=== PATIENT | male | born 1985 ===

== ENCOUNTER → 2021-05-31 16:17 | Outpatient (BNVA) | payer OTHER, SELFPAY | PROVIDERS: Visit Provider Internal Medicine | DX: S61.311A Laceration without foreign body of left index finger with damage to nail, initial encounter (principal); W31.89XA Contact with other specified machinery, initial encounter; Z23 Encounter for immunization | CPT/HCPCS: 12001; 90714; 99203 ==

== ENCOUNTER → 2021-06-03 09:21 | Outpatient (BNVA) | payer OTHER, SELFPAY | PROVIDERS: Visit Provider Internal Medicine | DX: S61.311A Laceration without foreign body of left index finger with damage to nail, initial encounter (principal); W23.0XXA Caught, crushed, jammed, or pinched between moving objects, initial encounter | CPT/HCPCS: 99213 ==

== ENCOUNTER → 2021-08-30 11:11 | Outpatient (BNVA) | payer OTHER, SELFPAY | PROVIDERS: Visit Provider Physician Assistant | DX: S61.211A Laceration without foreign body of left index finger without damage to nail, initial encounter (principal); W31.89XA Contact with other specified machinery, initial encounter | CPT/HCPCS: 12002; 99203 ==

== ENCOUNTER → 2021-09-03 10:52 | Outpatient (BNVA) | payer OTHER, SELFPAY | PROVIDERS: Visit Provider Physician Assistant Medical | DX: S61.211A Laceration without foreign body of left index finger without damage to nail, initial encounter (principal); W26.9XXA Contact with unspecified sharp object(s), initial encounter | CPT/HCPCS: 99213 ==

== ENCOUNTER → 2021-09-06 12:48 | Outpatient (BNVA) | payer OTHER, SELFPAY | PROVIDERS: Visit Provider Physician Assistant | DX: S61.211A Laceration without foreign body of left index finger without damage to nail, initial encounter (principal); L03.012 Cellulitis of left finger; W31.89XA Contact with other specified machinery, initial encounter | CPT/HCPCS: 87071; 87205; 99212; 99214 ==

== ENCOUNTER → 2021-09-09 10:59 | Outpatient (BNVA) | payer OTHER, SELFPAY | PROVIDERS: Visit Provider Physician Assistant Medical | DX: S61.211A Laceration without foreign body of left index finger without damage to nail, initial encounter (principal); L03.012 Cellulitis of left finger; W31.89XA Contact with other specified machinery, initial encounter | CPT/HCPCS: 99213 ==

== ENCOUNTER → 2021-09-13 13:03 | Outpatient (BNVA) | payer OTHER, SELFPAY | PROVIDERS: Visit Provider Physician Assistant | DX: S61.211A Laceration without foreign body of left index finger without damage to nail, initial encounter (principal); L03.012 Cellulitis of left finger; W31.89XA Contact with other specified machinery, initial encounter | CPT/HCPCS: 99213 ==

== ENCOUNTER → 2021-09-26 13:41 | Outpatient (BNVA) | payer OTHER, SELFPAY | PROVIDERS: Visit Provider Internal Medicine | DX: L03.012 Cellulitis of left finger (principal) | CPT/HCPCS: 99214 ==

== ENCOUNTER → 2021-09-30 09:32 | Outpatient (BNVA) | payer OTHER, SELFPAY | PROVIDERS: Visit Provider Physician Assistant Medical | DX: L03.012 Cellulitis of left finger (principal) | CPT/HCPCS: 99213 ==

== ENCOUNTER 2023-03-27 08:33 | Emergency (ER) | payer MEDICAID, SELFPAY ==
--- NOTE | ~2023-03-27 | XR_ITS ---
EXAMINATION: XR FOOT, LEFT CLINICAL INFORMATION: 2 weeks ago punctured with a metal COMPARISON: None available. TECHNIQUE: AP, lateral, and oblique views of the left foot. FINDINGS: There is no radiopaque metallic foreign body seen in the online the plantar surface. No focal soft tissue swelling. No bony abnormality. There is a small retrocalcaneal enthesophyte. Ankle mortise and subtalar joints are normal. XR/XR foot LT 2V IMPRESSION: 1. No radiopaque metallic foreign body or soft tissue swelling seen along the plantar surface of the foot. 2. Small retrocalcaneal enthesophyte.
[2023-03-27 09:06] VITALS: BP 134/86; PULSE 74; RESP 16; TEMP 36.2; O2SAT 97; BMI 49.4
--- NOTE | 2023-03-27 10:06 | ED.LOWEXIN ---
HPI - Extremity Injury (Lower) General Chief Complaint: Extremity Injury, Lower Stated Complaint: L Foot Injury 2-3 Wks Ago Time Seen by Provider: 03/27/23 09:13 Source: patient, RN notes reviewed and old records reviewed Mode of arrival: ambulatory History of Present Illness HPI Narrative: 37-year-old male with no significant past medical history presenting to the ED complaining of painful lump to bottom of left foot s/p jumping on his child's bed and spring puncturing foot 2-3 weeks ago. Patient concern for retained foreign body/spring. Denies fever/chills, drainage from area, numbness/tingling. Tetanus up-to-date Related Data Previous Rx's Medication Instructions Recorded mupirocin 2 % topical ointment 1 appl topical BID 7 days #15 grams 03/27/23 Allergies Allergy/AdvReac Type Severity Reaction Status Date / Time Penicillins [PENICILLINS] Allergy Unknown UNKNOWN Unverified 11/17/19 15:44 Review of Systems Review of Systems: Constitutional: No Fever, No Chills ENT/Mouth: No Ear Pain, No Nasal Congestion, No sore throat, No Rhinorrhea, No Swallowing Difficulty Cardiovascular: No Chest Pain, No SOB Respiratory: No Cough, No Sputum, No Wheezing Musculoskeletal: No joint pain, No Myalgias Skin: +Skin Lesions, No rash Neuro: No Weakness, No Numbness, No Paresthesias Yes all other systems are reviewed and are negative Constitutional: Constitutional: Reports as per HPI [facility] Past Medical History Attestation statement: The following information was validated with the patient. Source: old records reviewed Social History Social History Advance Directives: No Advance Directives Information Provided: No Physical Exam Vital Signs: Vital Signs: Last Vital Signs Temp 97.1 F 03/27/23 09:06 Pulse 74 03/27/23 09:06 Resp 16 03/27/23 09:06 BP 134/86 03/27/23 09:06 Pulse Ox 97 03/27/23 09:06 O2 Del Method Room Air 03/27/23 09:06 BMI result Body Mass Index 49.4 Const: General: cooperative, healthy appearing and no acute distress Orientation/consciousness: patient oriented x3 Limitations: no limitations HEENT: Head: Yes normal to inspection and Yes atraumatic Ears: hearing grossly normal bilaterally General nose exam: Normal external nose present Face and sinus: Yes normal facial exam Eyes: General: appearance normal, both eyes and all related structures EOM: EOMs intact bilaterally Neck: Neck: Yes normal visual inspection and Yes no meningeal signs Resp: Effort & Inspection: normal respiratory effort and no respiratory distress Cardio: Rate: regular rate Skin: Other: + hard callused area noted to plantar aspect of left foot. No surrounding erythema. No fluctuance/induration. Tender to palpation Rashes: no rashes Neuro: General: patient oriented x3, tone normal and no meningeal signs Cranial nerves: Yes CN's II-XII intact bilaterally Gait exam (Neuro): Normal gait present Extrem: General: Yes normal to inspection Course Course Course Narrative: XR foot LT 2V IMPRESSION: 1. No radiopaque metallic foreign body or soft tissue swelling seen along the plantar surface of the foot. 2. Small retrocalcaneal enthesophyte. > case discussed with ED attending Dr. Johansen who also evaluated patient. With 18 gauge needle, superficially dug skin at area > which provided some symptomatic relief for patient. No appreciable foreign body. Results discussed with patient including worrisome signs and symptoms and strict return precautions, and when to return to the emergency department. They verbalized understanding and feel safe for discharge at this time. Medical Decision Making Medical Decision Making MDM Narrative: 37-year-old male with no significant past medical history presenting to the ED complaining of painful lump to bottom of left foot s/p jumping on his child's bed and spring puncturing foot 2-3 weeks ago. On exam vital signs stable, NAD, nontoxic appearing physical exam as noted above. Concern for retained foreign body vs callus/corn. No evidence of cellulitis/abscess Plan: X-ray Please refer to course for remaining clinical decision making, interpretation of labs/imaging results, and discussions with consultants and/or family members. Differential Diagnosis Differential Diagnoses: The differential diagnosis associated with the presentation includes As above Independent Interpretation I performed an independent interpretation of an: Plain X-Ray (My interpretation: No appreciable foreign body seen on x-ray) Radiology Impression Discussion of test interpretation with radiology: I have reviewed the radiologist's reading. External Record Review External record reviewed: Inpatient record, Office record, Outpatient record, Prior outpatient labs, Prior outpatient radiology, Primary care record and Outside ED record Tests considered The following testing was considered but not selected: As above Prescription Management I considered prescription management with: Pain Medication and Antibiotic Discharge Plan Discharge Clinical Impression: [place] of foot Patient Disposition: Home, Self-Care Additional Instructions: Please purchase [id number] corn treatment/patches at [facility] or [facility] Apply topical mupirocin twice daily which is an antibiotic ointment Please follow-up with general surgery and/or Podiatry for further monitoring/evaluation. If symptoms persist or worsen or pain becomes unbearable or area looks infected return to the ED Prescriptions: New mupirocin 2 % ointment 1 appl topical BID 7 Days Qty: 15 0RF Referrals: [facility] [place] Group] Sterling Gaines DPM [Physician] - Stand Alone Forms: Work/School Release
[2023-03-27 10:15] VITALS: RESP 16
== END 2023-03-27 10:16 | disposition home or self-care (01) ==
PROVIDERS: Emergency Provider Emergency Medicine
DX: L84 Corns and callosities (principal)
CPT/HCPCS: 73620; 99283; 99284

== ENCOUNTER 2023-03-29 12:24 | Emergency (ER) | payer MEDICAID, SELFPAY ==
[2023-03-29 12:29] VITALS: BP 146/81; PULSE 84; RESP 20; TEMP 37; O2SAT 96; BMI 46.5
--- NOTE | 2023-03-29 12:31 | ED_ITS ---
HPI - General Adult General Chief complaint: Dental/Oral Stated complaint: Dental pain Source: patient Mode of arrival: ambulatory Limitations: no limitations History of Present Illness HPI narrative: 37 yold yold male present to the ED for right tooth ache pain started today. Patient states no facial swelling, neck swelling, droolling, change in voice, recent trauma, headache, chest pain, or shortness of breath. Related Data Previous Rx's Medication Instructions Recorded mupirocin 2 % topical ointment 1 appl topical BID 7 days #15 grams 03/27/23 clindamycin HCl 300 mg capsule 300 mg PO QID 10 days #40 caps 03/29/23 naproxen 500 mg tablet 500 mg PO BID PRN pain 7 days #14 03/29/23 tabs Allergies Allergy/AdvReac Type Severity Reaction Status Date / Time Penicillins [PENICILLINS] Allergy Unknown UNKNOWN Unverified 03/29/23 12:31 Review of Systems 2 Review of Systems: right upper molar pain. Yes all other systems are reviewed and are negative [facility] Social History Social History Alcohol intake: current Alcohol intake frequency: holidays/special occasions only Substance Use Type: Marijuana Advance Directives: No Advance Directives Information Provided: No Physical Exam ED Vital Signs: Vital Signs - 24 hr 03/29/23 12:29 Temperature 98.6 F Pulse Rate 84 Respiratory Rate 20 Blood Pressure 146/81 H Pulse Oximetry 96 Oxygen Delivery Method Room Air BMI result Body Mass Index 46.5 Const General: cooperative, healthy appearing, comfortable, no acute distress, well developed, alert, awake and Physically active Orientation/consciousness: oriented to person, oriented to place, oriented to time and patient oriented x3 HENMT Head: Yes normal to inspection, Yes No palpable skull fracture present, Yes normocephalic and Yes atraumatic Teeth image: 2 1. tender on palpation. negative for yellow collection, gum swelling, redness, drooling, trismus, haorness, or oral abscess. Eyes General: appearance normal, both eyes and all related structures Neck Neck: Yes normal visual inspection, Yes full ROM, Yes no lymphadenopathy, Yes no meningeal signs, Yes trachea midline, Yes supple, No anterior neck swelling and No tender Chest Chest palpation & inspection: normal inspection of the chest and normal palpation of entire chest wall Resp Effort & Inspection: normal respiratory effort and able to speak in complete sentences Auscultation: clear to auscultation bilaterally Cardio Jugular venous distension: no JVD Heart sounds: S1 normal heart sound present and S2 normal heart sound present GI Inspection: Yes normal to inspection Palpation (GI): Soft to palpation, not firm, nontender, no guarding and not rigid General: No CVA tenderness and Yes no CVA tenderness Back/Spine/Pelvis Back: no CVA tenderness, No CVA tenderness and No back tenderness Skin General skin exam: no rashes or lesions noted, elasticity normal and turgor normal Neuro General: oriented to person, oriented to place, oriented to time, patient oriented x3, gait normal, tone normal, moves all extremities, Normal light touch and pain sensation, no meningeal signs, no focal motor deficits, CN's II-XI intact bilaterally and normal sensation to monofilament Extrem General: Yes normal to inspection, Yes full ROM and Yes capillary refill normal Psych Appearance: grossly normal, well kempt and not disheveled Medical Decision Making Medical Decision Making MDM Narrative: 37 yold male presents to the ED for upper right molar pain that began today. patient states history of tooth ache. patient states no trauma, facial swelling, neck swelling, drooling, shortness of breath, or chest pain. discharbge with anitibioics. Not suspecting Harris's angina, retropharyngeal abscess, dental abscess, trismus, cellulitis, or fracture Differential Diagnosis Differential Diagnoses: The differential diagnosis associated with the presentation includes (Toothache, dental abscess,) External Record Review External record reviewed: Other (Prior visits) Prescription Management I considered prescription management with: Pain Medication and Antibiotic Discharge Plan Discharge Clinical Impression: Toothache Patient Disposition: Home, Self-Care Instructions: Toothache (ED) Additional Instructions: Return to the ED immediately for any facial swelling, neck swelling, drooling, worsening pain, inability tolerate solid food/liquid, chest pain, shortness of breath, weakness, dizziness, headache, or any other concerning symptoms. Please follow-up with the dentist Prescriptions: New naproxen 500 mg tablet 500 mg PO BID PRN (Reason: pain) 7 Days Qty: 14 0RF clindamycin HCl 300 mg capsule 300 mg PO QID 10 Days Qty: 40 0RF No Action mupirocin 2 % ointment 1 appl topical BID 7 Days Qty: 15 0RF Stand Alone Forms: Work/School Release Interventions: ED Discharge Assessment Last Done: 03/29/23 12:42 Discharge Date/Time: 03/29/23 12:44 Print Language: Mexican
== END 2023-03-29 12:44 | disposition home or self-care (01) ==
PROVIDERS: Emergency Provider Emergency Medicine
DX: K08.89 Other specified disorders of teeth and supporting structures (principal)
CPT/HCPCS: 99282; 99283

== ENCOUNTER 2023-06-19 14:52 | Outpatient (AMB) | payer MEDICAID, SELFPAY ==
--- NOTE | 2023-06-19 14:53 | A.OFFVIS_ITS ---
Intake Visit Reasons: vasectomy consult Intake Note: New Patient presents for initial visit for Vasectomy Consult Urology Medications: none Blood Thinner: none Children# 5 Expected Children#0 Lacing Cutter Required: No Accompanied by: Unknown Allergies Penicillins [PENICILLINS] Allergy (Unknown, Unverified 06/20/23 14:46) UNKNOWN Medication List - Last Reconciled 06/20/23 by JO ANN Huff No Known Home Meds HPI Comments Details: Hitesh is a very pleasant 38-year-old male patient who is accompanied by his significant other at today's office visit. He presents to the office today for - vasectomy evaluation Vasectomy evaluation The patient presents for vasectomy consultation.? He is currently marrie.d He has fathered -?5 children with 2 partners. The youngest child is - 1-year-old and the oldest is 18 years of age. His partner is aware and permissive for a vasectomy as she is present at todays office visit. Current form of control is hormones. Current employment is [employer]. The vasectomy may be complicated due to a history of no complicating issues. Patient education has been provided via [facility] video, via printed information, risks of failure, recovery time, bruising and potential pain syndrome have been stressed Discussion today focused on the presence of vasectomy and the risks, benefits and alternatives that are available. Vasectomy as intended as a permanent form of control. Printed information and literature was provided to the patient. Overall there is a one in 2500 failure rate. This can occur at any time after vasectomy. Risks were discussed highlighting hematoma, spermatocele, epididymal congestion, development of sperm antibodies, and development of chronic pain estimated between 1-5%. The procedure was reviewed in detail. Anatomical diagrams of the male genitalia were used to explain the location of the vas deferens. The vas deferens will be transected, the proximal end will be cauterized, a metal clip would be applied to separate the 2 vas deferens ends. It was explained the procedure will be done in the office and takes approximately 10-15 minutes. Less common problems that arise with vasectomy include hematoma, bleeding, allergic reaction to anesthetic, epididymal infection, epididymal congestion, scrotal discomfort, spermatic leak, spermatic granuloma and the possibility of antisperm antibodies. He understands these risks and wishes to proceed. Consent was signed at the office today. He also understands that it takes 12 weeks for sperm to fully clear the system. He will need to provide a semen sample at 12 weeks and if this is not clear a 2nd sample at 16 weeks. Medical clearance to stop using protection will only be provided if he satisfies published criteria for sperm clearance. [facility] Social History Alcohol intake: current Alcohol intake frequency: holidays/special occasions only Substance Use Type: Marijuana Review of Systems Const All systems reviewed & are unremarkable except as noted in HPI and below Physical Exam Const General: cooperative, comfortable, no acute distress, well developed, alert and awake Orientation/consciousness: patient oriented x3 HEENT Head: Yes normal to inspection, Yes normocephalic and Yes atraumatic Ears: hearing grossly normal bilaterally Eyes General: appearance normal, both eyes and all related structures Neck Neck: Yes normal visual inspection and Yes trachea midline Chest Chest palpation & inspection: normal inspection of the chest Resp Effort & Inspection: normal respiratory effort and able to speak in complete sentences Cardio Rate: regular rate GI Inspection: Yes normal to inspection General: Yes no CVA tenderness Male General Exam: Yes normal external exam Penis: normal penis Meatus: meatus normal Scrotum: scrotum normal Testes: Testes normal Back/Spine/Pelvis Back: no CVA tenderness Skin General skin exam: no rashes or lesions noted Neuro General: patient oriented x3 Extrem General: Yes normal to inspection Psych Appearance: grossly normal and well kempt Mental Status: mental status grossly normal Speech and movement: Normal speech and movement present and Clear speech present Affect: normal affect Attitude: cooperative Thought process: Normal thought process present Thought content: Normal thought content present Insight: Fair insight present (Psych) Judgement: Fair judgement present (Psych) Results AMB Urinalysis, Automated UA Leukoctes 0 Ashely/uL Last Edit by Juvencio Campoverde on 06/19/23 15:07 UA Nitrite Negative Last Edit by Juvencio Campoverde on 06/19/23 15:07 UA Urobilinogen 0.2 mg/dL Last Edit by Juvencio Campoverde on 06/19/23 15:07 UA Protein 15 mg/dL Last Edit by Juvencio Campoverde on 06/19/23 15:07 UA pH 6.0 Last Edit by Juvencio Campoverde on 06/19/23 15:07 UA Blood 0 Gary/uL Last Edit by Juvencio Campoverde on 06/19/23 15:07 UA Specific [place] 1.015 Last Edit by Juvencio Campoverde on 06/19/23 15:07 UA Ketone Positive Last Edit by Juvencio Campoverde on 06/19/23 15:07 UA Bilirubin 0 mg/dL Last Edit by Juvencio Campoverde on 06/19/23 15:07 UA Glucose 0 mg/dL Last Edit by Juvencio Campoverde on 06/19/23 15:07 Results Reviewed Results Reviewed: Laboratory Last Values Urine pH (Auto) 6.0 06/19/23 15:03 Specific [place] (Auto) 1.015 06/19/23 15:03 Urine Protein (Auto) 15 mg/dL 06/19/23 15:03 Glucose (UA)(Auto) 0 mg/dL 06/19/23 15:03 Urine Ketones (Auto) Positive 06/19/23 15:03 Urine Blood (Auto) 0 Gary/uL 06/19/23 15:03 Urine Nitrite (Auto) Negative 06/19/23 15:03 Urine Bilirubin (Auto) 0 mg/dL 06/19/23 15:03 Urine Urobilinogen (Auto) 0.2 mg/dL 06/19/23 15:03 Leukocyte Esterase (Auto) 0 Ashely/uL 06/19/23 15:03 Assessment & Plan Assessment & Plan (1) Anxiety about health: Code(s): R45.89 - Other symptoms and signs involving emotional state Category: Medical (2) Vasectomy evaluation: Code(s): Z30.09 - Encounter for other general counseling and advice on contraception Category: Medical Plan Discussed at length vasectomy; risks and benefits; as noted above. All questions were answered. Prescriptions provided; discussed and stressed the importance of taking them as prescribed. [place] information/education provided. Will schedule for vasectomy with Dr. Martínez as discussed. Orders: Orders AMB Urinalysis Automated 06/19/23 Z13.9 - Encounter for screening, unspecified Medications: New diazepam Take medication after arrival at office 2 mg PO BID 1 day PRN 2 tabs 0RF anxiety R45.89 - Other symptoms and signs involving emotional state acetaminophen-codeine 300-30 mg 1 tab PO Q8H 3 days 9 tabs 0RF R45.89 - Other symptoms and signs involving emotional state Discontinued mupirocin 2% Discontinued Reason: Patient no longer taking 1 appl topical BID 7 days 15 grams 0RF clindamycin HCl Discontinued Reason: Patient no longer taking 300 mg PO QID 10 days 40 caps 0RF naproxen Discontinued Reason: Patient no longer taking 500 mg PO BID 7 days PRN 14 tabs 0RF pain Patient Instructions: The patient had an opportunity to ask questions regarding the treatment plan. All questions were answered. Physical exam, labs, and imaging were discussed and reviewed in detail. As well as risks, benefits, and discussion of treatment c hoices. No major barriers to understanding were identified. The patient expressed understanding and agreement with the above treatment plan. The patient was made aware they should contact our office by phone for worsening of their current condition, the appearance of new symptoms, or with any questions or concerns. Compliance is encouraged with any medications and follow up testing that is ordered. It is a privilege to be allowed the opportunity to participate in? your urological care.? Again, if you have any questions or concerns If you have any questions or concerns please do not hesitate to contact me. The office is [phone]. This note is constructed using voice recognition software. While every effort has been made to ensure accuracy fitness and wellness director errors may have been included. Yours sincerely, JO ANN Huff
== END 2023-06-19 15:35 | disposition home or self-care (01) ==
PROVIDERS: Visit Provider Nurse Practitioner Family
DX: Z13.9 Encounter for screening, unspecified (principal)
CPT/HCPCS: 99204

== ENCOUNTER → 2023-06-19 14:52 | Outpatient (BNVA) | payer MEDICAID, SELFPAY | PROVIDERS: Visit Provider Nurse Practitioner Family | DX: Z30.09 Encounter for other general counseling and advice on contraception (principal); R45.89 Other symptoms and signs involving emotional state | CPT/HCPCS: 81003; 99212 ==

== ENCOUNTER 2023-08-05 14:49 | Outpatient (AMB) | payer MEDICAID, SELFPAY ==
--- NOTE | 2023-08-05 15:46 | A.OFFVIS_ITS ---
Intake Visit Reasons: Vasectomy Intake Note: Patient presents today for a VASECTOMY PROCEDURE: Meds- None Allergies to Antibiotic- Penicillin Blood Thinner- None Ultrasonic Cleaner Required: No Accompanied by: Significant Other Allergies Penicillins [PENICILLINS] Allergy (Unknown, Verified 08/05/23 15:47) UNKNOWN HPI Comments Details: Hitesh is a very pleasant 38-year-old male patient who is accompanied by his significant other at today's office visit. He presents to the office today for - vasectomy procedure Vasectomy procedure The patient presents for vasectomy procedure.? He is currently marrie.d He has fathered -?5 children with 2 partners. The youngest child is - 1-year-old and the oldest is 18 years of age. His partner is aware and permissive for a vasectomy as she is present at the [facility] office visit. Current form of control is hormones. Current employment is [employer]. FORMERLY [facility] Surgical History (Updated 08/05/23 @ 15:48 by CLARK Spangler) History of vasectomy Social History Alcohol intake: current Alcohol intake frequency: holidays/special occasions only Substance Use Type: Marijuana Office Procedures Vasectomy Details: Preoperative diagnosis: Anxiety regarding Postoperative diagnosis: Anxiety regarding unplanned Procedure: Bilateral vasectomy Informed consent had been completed. Preoperative and postoperative instructions were provided to the patient. The patient has transportation to home identified at the completion of the procedure. Anti-anxiolytic prescription medication had been taken after consent verification and all questions answered. Tylenol with Codeine pain medication was also provided. The penis was elevated using a rubber band that was attached to the patient's shirt. Both vasa were palpated through the skin using a 3 finger technique and the penoscrotal junction was prepped with Betadine. After Betadine application the left vas was elevated using a 3 finger grasping technique. 1% lidocaine was used to create a subdermal bubble. Further anesthetic was then advanced using the 25-gauge needle along the vasa in a proximal fashion. Approximately 2 minutes were allowed to for local anesthetic uptake. Using the sharp spreading instrument the scrotal skin was spread longitudinally in line with the vasa until the subdermal layer had been divided. The vasa was then elevated from the scrotum using a ring clamp. Care was taken to elevate the superior portion of the vasa by rotating the ring clamp in a caudad direction. The battery powered cautery was used to divide the vasal sheath in a longitudinal direction on the exposed vasa and to strip the vasal sheath from the vasa. A 2nd narrower ring clamp was placed on the exposed vas and used to lift the vas from the vasal sheath. so it grasped the elevated vas. The cautery was used to divide vasal attachments and allow full exposure of a small loop of vasa. The sharp spreading instrument was then used to create a tunnel under the vasa and spread to allow the blood vessels of the vasa to retract from the vasa. A mosquito clamp was placed on the proximal portion of the vas. The battery- powered cautery was used to make a partial division in the proximal vas and then inserted in order to cauterize the proximal end of the vas. This was then cut and allowed to retract into the vasal sheath. The mosquito was then used to twist the vasa 180 degrees creating a fascial interposition. Using a 4-0 chromic suture the fascial interposition was sutured closed. The distal portion of the vas was then cut in order to obtain a segment of vasa. The vasa were allowed to retract back into the scrotum. A small snap was then used to approximate the skin edges and allow hemostasis without placement of a suture. A similar procedure was repeated on the right side. He tolerated the procedure well. Triple antibiotic was applied. A gauze was applied. An ice pack was applied to assist with minimizing swelling. Postoperative instructions were confirmed. He understands the need to continue to use control methods. A semen sample should be brought for inspection under the microscope in 10-12 weeks. CPT 05895 Vasectomy performed by: Ari Martínez Informed consent given: Yes Informed consent signed: Yes Time out checklist: patient, procedure, site marked/identified, positioning of patient, supplies available, allergies confirmed and team agrees on procedure Time out verified: Yes Preoperative sedation: Yes Anesthetic used: other Specimens: vas segments not sent to pathology 18763 - Vasectomy Assessment & Plan Assessment & Plan (1) Anxiety about health: Code(s): R45.89 - Other symptoms and signs involving emotional state Category: Medical Plan Twelve week follow-up Patient Instructions: Imaging studies, laboratory and physical exam results were discussed and reviewed in detail. No major barriers to patient understanding were identified. An opportunity to ask questions regarding the treatment plan was provided. All questions were answered. The patient expressed understanding and agreement with the above treatment plan. The patient is aware they should contact our office by phone for worsening of their current condition or the appearance of new urologic symptoms. Compliance is encouraged with any medications and followup testing that is ordered. It is a privilege to participate in the urologic care of your patient. If you have any questions or concerns regarding treatment for the above conditions, or other urologic issues, please do not hesitate to contact me. The office telephone contact is [phone]. This note is constructed using voice recognition software. While every effort has been made to ensure accuracy director of psychology errors may have been included. Yours sincerely, Dr Ari Martínez MD, [place] [facility] - Urology Providers of Expert, Compassionate Care for the Genitourinary System Coding Level of Care Code Procedure Only Diagnoses Anxiety about health R45.89 CPT Codes Office Procedure - CPT: 15862 - Vasectomy ([id number])
== END 2023-08-05 16:11 | disposition home or self-care (01) ==
PROVIDERS: Visit Provider Urology
DX: Z30.2 Encounter for sterilization (principal); R45.89 Other symptoms and signs involving emotional state
CPT/HCPCS: 55250

== ENCOUNTER → 2023-08-05 14:49 | Outpatient (BNVA) | payer MEDICAID, SELFPAY | PROVIDERS: Visit Provider Urology | DX: Z30.2 Encounter for sterilization (principal); R45.89 Other symptoms and signs involving emotional state | CPT/HCPCS: 55250 ==

== ENCOUNTER 2023-11-03 15:13 | Outpatient (AMB) | payer MEDICAID, SELFPAY ==
--- NOTE | 2023-11-03 15:22 | A.OFFVIS_ITS ---
Intake Visit Reasons: 3m semen analysis Intake Note: Patient is present for 3M SEMEN ANALYSIS Urology Medication:DIAZEPAM, TRAMADOL Antibiotic Allergy:PENICILLIN Blood Thinner:NONE Recycle Driver Required: No Allergies Penicillins [PENICILLINS] Allergy (Unknown, Verified 11/03/23 15:24) UNKNOWN HPI Comments Details: Hitesh is a very pleasant 38-year-old male patient who is accompanied by his significant other at today's office visit. He presents to the office today for - vasectomy followup No sperm seen on high-power field evaluation Vasectomy procedure The patient presents for vasectomy procedure.? He is currently marrie.d He has fathered -?5 children with 2 partners. The youngest child is - 1-year-old and the oldest is 18 years of age. His partner is aware and permissive for a vasectomy as she is present at todays office visit. Current form of control is hormones. Current employment is [employer]. REPLACED BY [facility] Surgical History (Updated 08/05/23 @ 15:48 by CLARK Spangler) History of vasectomy Social History Alcohol intake: current Alcohol intake frequency: holidays/special occasions only Substance Use Type: Marijuana Review of Systems Const Denies chills and Denies fever(s) Card Reports no additional complaints and Denies syncope Resp Denies cough GI Denies abdominal pain and Denies heartburn Reports as per HPI and Denies change in libido Neuro Denies syncope Psych Denies change in libido Endo Denies change in libido Physical Exam Const General: cooperative, healthy appearing, comfortable and no acute distress Orientation/consciousness: patient oriented x3 HEENT Face and sinus: Yes normal facial exam Mouth: moist mucous membranes Neck Neck: Yes normal visual inspection, Yes full ROM and Yes trachea midline Chest Chest palpation & inspection: normal inspection of the chest Resp Effort & Inspection: normal respiratory effort, able to speak in complete sentences and no respiratory distress GI Inspection: Yes normal to inspection Back/Spine/Pelvis Cervical Spine: normal cervical lordosis Thoracic/Lumbar Spine: thoracic and lumbar spine normal to inspection Skin General skin exam: no rashes or lesions noted Neuro General: patient oriented x3, gait normal, tone normal and moves all extremities Extrem General: Yes normal to inspection and Yes capillary refill normal Assessment & Plan Assessment & Plan (1) Anxiety about health: Code(s): R45.89 - Other symptoms and signs involving emotional state Category: Medical Plan P.r.n. follow-up Patient Instructions: Imaging studies, laboratory and physical exam results were discussed and reviewed in detail. No major barriers to patient understanding were identified. An opportunity to ask questions regarding the treatment plan was provided. All questions were answered. The patient expressed understanding and agreement with the above treatment plan. The patient is aware they should contact our office by phone for worsening of their current condition or the appearance of new urologic symptoms. Compliance is encouraged with any medications and followup testing that is ordered. It is a privilege to participate in the urologic care of your patient. If you have any questions or concerns regarding treatment for the above conditions, or other urologic issues, please do not hesitate to contact me. The office telephone contact is [phone]. This note is constructed using voice recognition software. While every effort has been made to ensure accuracy corporate pilot errors may have been included. Yours sincerely, Dr Ari Martínez MD, [place] [facility] - Urology Providers of Expert, Compassionate Care for the Genitourinary System Coding Level of Care Code Est Pt Level 3 (98516) Diagnoses Anxiety about health R45.89
== END 2023-11-03 15:46 | disposition home or self-care (01) ==
PROVIDERS: Visit Provider Urology
DX: R45.89 Other symptoms and signs involving emotional state (principal)
CPT/HCPCS: 99024

== ENCOUNTER → 2023-11-03 15:13 | Outpatient (BNVA) | payer MEDICAID, SELFPAY | PROVIDERS: Visit Provider Urology | DX: Z30.8 Encounter for other contraceptive management (principal); Z98.52 Vasectomy status | CPT/HCPCS: 99212 ==

== ENCOUNTER → 2024-01-22 11:49 | Outpatient (BNVA) | payer OTHER, SELFPAY | PROVIDERS: Visit Provider Physician Assistant Medical | DX: S93.492A Sprain of other ligament of left ankle, initial encounter (principal); V68.4XXA Person boarding or alighting a heavy transport vehicle injured in noncollision transport accident, initial encounter | CPT/HCPCS: 73610; 99203 ==

== ENCOUNTER → 2024-01-26 11:03 | Outpatient (BNVA) | payer OTHER, SELFPAY | PROVIDERS: Visit Provider Physician Assistant Medical | DX: S93.492A Sprain of other ligament of left ankle, initial encounter (principal); V68.4XXA Person boarding or alighting a heavy transport vehicle injured in noncollision transport accident, initial encounter | CPT/HCPCS: 99213 ==

== ENCOUNTER → 2024-02-02 09:43 | Outpatient (BNVA) | payer OTHER, SELFPAY | PROVIDERS: Visit Provider Physician Assistant Medical | DX: S93.492D Sprain of other ligament of left ankle, subsequent encounter (principal); V68 Occupant of heavy transport vehicle injured in noncollision transport accident | CPT/HCPCS: 99213 ==

== ENCOUNTER 2024-04-09 13:22 | Emergency (ER) | payer MEDICAID, SELFPAY ==
--- NOTE | ~2024-04-09 | XR_ITS ---
CLINICAL HISTORY: pain 3 views lumbar spine Comparison: None Findings: Slight convex right curvature. No spondylolisthesis. No acute fractures or dislocation. Small marginal osteophytes. No significant loss of disc height. No significant facet disease. IMPRESSION: No acute findings. This document has been electronically signed by: Sushma Hightower MD on 04/09/2024 15:15:57
--- NOTE | ~2024-04-09 | XR_ITS ---
CLINICAL HISTORY: cough, chest pain 2 view chest x-ray Comparison: CR - CHEST 2 VIEWS - 04/18/18 14:06 EST Findings: The lungs are clear. Heart size is normal. No acute fracture. IMPRESSION: 1. No acute findings. This document has been electronically signed by: Sushma Hightower MD on 04/09/2024 15:19:56
--- NOTE | 2024-04-09 13:27 | ECG_ITS ---
Test Reason : CP Blood Pressure : */* mmHG Vent. Rate : 66 BPM Atrial Rate : 66 BPM P-R Int : 106 ms QRS Dur : 90 ms QT Int : 374 ms P-R-T Axes : -4 55 27 degrees QTcB Int : 392 ms Sinus rhythm with short CA Otherwise normal ECG When compared with ECG of 18-Apr-2018 14:12, No significant change was found Referred By: Michelle Sheets Electronically Signed By: Dion Gonzalez
[2024-04-09 13:37] VITALS: BP 152/96; PULSE 81; RESP 20; TEMP 36.9; O2SAT 97; BMI 42.2
--- NOTE | 2024-04-09 13:37 | ED_ITS ---
HPI - General Adult General Chief complaint: Upper Respiratory Symptoms Stated complaint: chest pain when cough, flu symptoms, back pain Time Seen by Provider: 04/09/24 15:49 Source: patient Mode of arrival: ambulatory Limitations: no limitations History of Present Illness ED Provider: Michelle Sheets PA-C HPI narrative: Patient is a 38 year old assigned male at with a history of anxiety about health presenting to the emergency department today with a cough, dizziness, and right sided back pain. Patient states that over the last 2 days he has felt generally unwell with dizziness, cough, and low back pain. Patient states that his child at home is sick with influenza. Patient denies any lightheadedness, abdominal pain, nausea, vomiting, fever, chills, blurry vision, double vision, loss of vision, chest pain, difficulty breathing, shortness of breath, night sweats, pain with urination, increased urinary frequency, increased urinary urgency, blood in his urine or stool, syncope or a near syncopal episode, recent trauma or falls, bowel incontinence, bladder incontinence, or any other complaints at this time. Onset (ago): day(s) (2) Relieving factors: none Exacerbating factors: none Associated symptoms: cough Treatments prior to arrival: none Related Data Previous Rx's ?Medication ?Instructions ?Recorded diazepam 2 mg tablet 2 mg PO BID PRN anxiety 1 day #2 06/20/23 tabs tramadol 50 mg tablet 50 mg PO Q8H PRN pain #7 tabs 08/04/23 ibuprofen 800 mg tablet 800 mg PO TID #30 tabs 01/22/24 Allergies Allergy/AdvReac Type Severity Reaction Status Date / Time Penicillins [PENICILLINS] Allergy Unknown UNKNOWN Verified 04/09/24 13:40 Review of Systems 2 Constitutional: Constitutional: Reports no additional constitutional complaints, Denies chills, Denies fever(s) and Denies night sweats Eyes: Eyes: Reports no additional eye complaints, Denies blurry vision, Denies change in vision, Denies diplopia, Denies eye discharge, Denies loss of vision and Denies eye pain ENT: Reports dizziness Cardiovascular: Cardiovascular: Reports no additional cardiovascular complaints, Denies chest pain, Denies lightheadedness, Denies Loss of Consciousness and Denies dyspnea Respiratory: Respiratory: Reports no additional respiratory complaints, Reports cough and Denies dyspnea Gastrointestinal: Gastrointestinal: Reports no additional gastrointestinal complaints, Denies abdominal pain, Denies melena, Denies hematochezia, Denies change in bowel habits and Denies change in stool character Genitourinary: Genitourinary: Reports no additional male genitourinary complaints, Denies hematuria, Denies oliguria, Denies difficulty urinating, Denies dysuria, Denies urinary frequency, Denies urinary hesitancy, Denies urinary incontinence and Denies urinary urgency Musculoskeletal: Musculoskeletal: Reports no additional musculoskeletal complaints, Reports back pain, Denies numbness and Denies tingling Neurologic: Reports dizziness, Denies loss of vision, Denies numbness and Denies tingling Psychiatric: Psychiatric: Reports no additional psychiatric complaints Endocrine: Endocrine: Reports no additional endocrine complaints Hematologic/Lymphatic: Hematologic/Lymphatic: Reports no additional hematologic/lymphatic complaints Allergic/Immunologic: Allergic/Immunologic: Reports no additional allergic/immunologic complaints PMFSH Past Medical History Attestation statement: The following information was validated with the patient. Source: old records reviewed and nursing notes reviewed Surgical History History of vasectomy Social History Social History Alcohol intake: current Alcohol intake frequency: holidays/special occasions only Substance Use Type: Marijuana Advance Directives: No Advance Directives Information Provided: No Physical Exam ED Vital Signs: Vital Signs - 24 hr 04/09/24 13:37 Temperature 98.5 F Pulse Rate 81 Respiratory Rate 20 Blood Pressure 152/96 H Pulse Oximetry 97 Oxygen Delivery Method Room Air BMI result Body Mass Index 42.2 Const General: cooperative, no acute distress, alert and awake Nutritional Appearance: well nourished Orientation/consciousness: patient oriented x3 Limitations: no limitations HENOK Head: Yes normal to inspection and Yes atraumatic Ears: hearing grossly normal bilaterally and external ears normal General nose exam: Normal external nose present, no nasal discharge noted and no epistaxis Face and sinus: Yes normal facial exam, No abrasion and No laceration Mouth: Normal oral and palatal mucosa present, no drooling and no muffled voice Eyes General: appearance normal, both eyes and all related structures Periorbital: periorbital findings normal Eyelids: Yes eyelids normal Conjunctivae: conjunctivae normal Pupils: Equal, round and reactive pupils present EOM: EOMs intact bilaterally Neck Neck: Yes normal visual inspection, Yes full ROM and Yes no lymphadenopathy Chest Chest palpation & inspection: normal inspection of the chest Resp Effort & Inspection: normal respiratory effort and able to speak in complete sentences GI Inspection: Yes normal to inspection Neuro General: patient oriented x3, moves all extremities and CN's II-XI intact bilaterally Cranial nerves: Yes Equal, round and reactive pupils present Cognition (Neuro): normal cognition Extrem General: Yes normal to inspection, Yes full ROM and Yes capillary refill normal Psych Appearance: grossly normal Mental Status: mental status grossly normal Affect: normal affect Attitude: cooperative Thought process: Normal thought process present Thought content: Normal thought content present Insight: Good insight present (Psych) Course Course Course Narrative: RME performed by Michelle Sheets PA-C. Patient is a 38 year old assigned male at presenting to the emergency department with a cough and feeling generally unwell for 2 days. Patient states that his son is positive for influenza. Detailed physical exam and review of systems are deferred to the refresh technician. EKG, labs, imaging, and swabs ordered. Patient placed back in the waiting room pending room availability and results. Medical Decision Making Medical Decision Making MDM Narrative: Patient is a 38 year old assigned male at with a history of anxiety about health presenting to the emergency department today with a cough, dizziness, and right sided back pain. Patient's physical exam was unremarkable. Patient's blood work was unremarkable. Patient's EKG was unremarkable. Patient's chest and lumbar spine x-rays showed no acute process. Patient's influenza testing was positive. I explained my physical exam findings as well as all test results to the patient. I answered all questions asked by the patient. I stressed the importance of the patient taking his medication as directed (either prescribed or as the over the counter packaging recommends). I stressed the importance of the patient following up with his primary care provider. I stressed the importance of the patient returning to the emergency department immediately if his symptoms were to worsen or if he were to develop any dizziness, shortness of breath, difficulty breathing, chest pain, blurry vision, loss of vision, nausea, vomiting, abdominal pain, fever, chills, back pain, or any other complaints. Patient verbalized agreement and understanding with this treatment plan and discharge. Differential Diagnosis Differential Diagnoses: The differential diagnosis associated with the presentation includes Viral illness Influenza COVID-19 RSV Admission/Observation Consideration of admission/observation: Escalation of care including admission/observation considered Patient would have been admitted to the hospital had his work up had any findings where hospital admission was appropriate and his clinical presentation warranted hospital admission. Lab Data [facility] Lab Attestation statement: I reviewed the patient's lab results. My interpretation of these results are in the [facility] Rationale portion of this note. 04/09/24 14:07 04/09/24 14:07 Labs: Lab Results 04/09/24 Range/Units 14:07 WBC 3.2 L (4.8-10.8) X10*3/uL RBC 4.88 (4.60-5.80) X10*6/uL Hgb 14.4 (14.0-18.0) g/dl Hct 41.9 L (42.0-52.0) % MCV 85.9 (80.0-98.0) fL MCH 29.5 (27.0-33.0) pg MCHC 34.4 (31.0-36.0) g/dl RDW 12.9 (11.0-16.0) % Plt Count 252 (160-400) X10*3/uL MPV 10.2 (9.4-12.4) fL Immature Gran % (Auto) 0.3 (0.0-0.4) % Neut % (Auto) 44.5 L (45-73) % Lymph % (Auto) 38.1 (20-40) % Hidalgo % (Auto) 16.5 H (2-11) % Eos % (Auto) 0.3 (0-4) % Baso % (Auto) 0.3 (0-2) % Lymph # (Auto) 1.2 (1.2-4.9) X10*3/uL Hidalgo # (Auto) 0.5 (0.1-1.2) X10*3/uL Eos # (Auto) 0.0 (0.0-0.4) X10*3/uL Baso # (Auto) 0.0 (0.0-0.2) X10*3/uL Abs Immat Gran (auto) 0.01 (0.00-0.03) X10*3/uL Absolute Neuts (auto) 1.4 L (2.0-8.3) x10*3/uL Absolute Nucleated RBC 0.000 (0.0-0.012) X10*3/uL Nucleated RBC % (auto) 0.0 (0.0-0.2) /100WBC Sodium 141 (135-145) mmol/L Potassium 4.2 (3.3-5.1) mmol/L Chloride 108 (96-108) mmol/L Carbon Dioxide 24 (22-29) mmol/L Anion Gap 13 (12-20) BUN 11 (9-16) mg/dL Creatinine 0.86 (0.5-1.4) mg/dL Estim Creat Clear Calc 158.2 Estimated GFR > 60 Random Glucose 112 (60-115) mg/dL Calcium 9.3 (8.4-10.2) mg/dL Magnesium 2.2 (1.6-2.6) mg/dL Total Bilirubin 0.3 (0.0-1.0) mg/dL AST 33 (5-37) U/L ALT 30 (0-40) U/L Alkaline Phosphatase 59 (39-117) U/L Troponin I High Sens < 2.7 (<3.5-35.0) ng/L Total Protein 8.0 (6.5-8.0) g/dL Albumin 4.5 (3.5-5.0) g/dL Influenza Type A (PCR) POSITIVE A (Negative) Influenza Type B (PCR) NEGATIVE (Negative) RSV RNA Qual (PCR) NEGATIVE (Negative) SARS-CoV-2 RNA (RT-PCR) NEGATIVE (Negative) Independent Interpretation I performed an independent interpretation of an: EKG and Plain X-Ray Interpretation: My interpretation is in agreement with the radiologist's impression of these imaging studies. L CLINICAL HISTORY: cough, chest pain 2 view chest x-ray Comparison: CR - CHEST 2 VIEWS - 04/18/18 14:06 EST Findings: The lungs are clear. Heart size is normal. No acute fracture. IMPRESSION: 1. No acute findings. This document has been electronically signed by: Sushma Hightower MD on 04/09/2024 15:19:56 Dictated By: Sushma Hightower MD Signed By: Electronically signed by Sushma Hightower MD 04/09/24 1520 CLINICAL HISTORY: pain 3 views lumbar spine Comparison: None Findings: Slight convex right curvature. No spondylolisthesis. No acute fractures or dislocation. Small marginal osteophytes. No significant loss of disc height. No significant facet disease. IMPRESSION: No acute findings. This document has been electronically signed by: Sushma Hightower MD on 04/09/2024 15:15:57 Dictated By: Sushma Hightower MD Signed By: Electronically signed by Sushma Hightower MD 04/09/24 1516 Vent. Rate: 66 BPM Atrial Rate: 66 BPM P-R Int: 106 ms QRS Dur: 90 ms QT Int: 374 ms P-R-T Axes: -4 55 27 degrees QTcB Int: 392 ms Sinus rhythm with short IL When compared with ECG of 18-Apr-2018 14:12, No significant change was found DD/ 1336 Radiology Impression Discussion of test interpretation with radiology: I have reviewed the radiologist's reading. Discharge Plan Discharge Clinical Impression: Influenza Patient Disposition: Home, Self-Care Instructions: Influenza (DC) Additional Instructions: Drink plenty of fluids. If you are unable to tolerate fluids by mouth, proceed to your closest emergency department immediately. You can take Tylenol every 6 hours for a MAXIMUM of 3,000mg over 24 hours. you can take Ibuprofen every 4 hours for a MAXIMUM of 3,200mg over 24 hours. Follow up with your primary care provider. Return to the emergency department immediately if your symptoms worsen or if you develop any dizziness, shortness of breath, difficulty breathing, chest pain, blurry vision, loss of vision, nausea, vomiting, abdominal pain, fever, chills, back pain, or any other complaints. Prescriptions: No Action tramadol 50 mg tablet 50 mg PO Q8H PRN (Reason: pain) Qty: 7 0RF Rx Instructions: Bring prescriptions office day of procedure diazepam 2 mg tablet 2 mg PO BID PRN (Reason: anxiety) 1 Days Qty: 2 0RF Rx Instructions: Take medication after arrival at office ibuprofen 800 mg tablet 800 mg PO TID Qty: 30 0RF Referrals: Jimmy Ramirez MD [Primary Care Provider] - Print Language: Romansh
[2024-04-09 14:21] LABS: MANUAL DIFF FLAG NO
[2024-04-09 14:22] LABS: Basophils Percent Auto 0.3 % (0-2); Eosinophils Percent Auto 0.3 % (0-4); Hematocrit 41.9 % (42.0-52.0); Hemoglobin 14.4 g/dl (14.0-18.0); Imm Gran Abs Auto 0.01 X10*3/uL (0.00-0.03); Imm Gran Pct Auto 0.3 % (0.0-0.4); Lymphocytes Absolute Auto 1.2 X10*3/uL (1.2-4.9); Lymphocytes Percent Auto 38.1 % (20-40); Mean Corpuscular HGB Conc 34.4 g/dl (31.0-36.0); Mean Corpuscular Hemoglobin 29.5 pg (27.0-33.0); Mean Corpuscular Volume 85.9 fL (80.0-98.0); Mean Platelet Volume 10.2 fL (9.4-12.4); Monocytes Absolute Auto 0.5 X10*3/uL (0.1-1.2); Monocytes Percent Auto 16.5 % (2-11); Neutrophils Absolute Auto 1.4 x10*3/uL (2.0-8.3); Neutrophils Percent Auto 44.5 % (45-73); Platelet Count 252 X10*3/uL (160-400); Red Blood Count 4.88 X10*6/uL (4.60-5.80); Red Cell Distribution Width 12.9 % (11.0-16.0); White Blood Count 3.2 X10*3/uL (4.8-10.8)
[2024-04-09 14:36] LABS: Alanine Aminotransferase 30 U/L (0-40); Albumin Level 4.5 g/dL (3.5-5.0); Alkaline Phosphatase 59 U/L (39-117); Anion Gap 13 (12-20); Aspartate Amino Transferase 33 U/L (5-37); Bilirubin Total 0.3 mg/dL (0.0-1.0); Blood Urea Nitrogen 11 mg/dL (9-16); Calcium 9.3 mg/dL (8.4-10.2); Carbon Dioxide 24 mmol/L (22-29); Chloride 108 mmol/L (96-108); Creatinine Clr Calc Pharmacy 158.2; Estimated Glomerular Filt Rate > 60; Glucose Random 112 mg/dL (60-115); Magnesium 2.2 mg/dL (1.6-2.6); Potassium 4.2 mmol/L (3.3-5.1); Sodium 141 mmol/L (135-145)
[2024-04-09 14:53] LABS: Troponin-I High Sensitivity < 2.7 ng/L (<3.5-35.0)
[2024-04-09 15:00] LABS: Influenza A PCR POSITIVE (Negative); Influenza B PCR NEGATIVE (Negative); Resp Syncy Virus RNA Qual PCR NEGATIVE (Negative); SARS COV2 PCR INHOUSE NEGATIVE (Negative)
[2024-04-09 16:06] VITALS: BP 152/96; PULSE 81; RESP 20; TEMP 36.9; O2SAT 97
== END 2024-04-09 16:06 | disposition home or self-care (01) ==
PROVIDERS: Physician Assistant Medical; Emergency Provider Emergency Medicine; PCP Internal Medicine
DX: J10.1 Influenza due to other identified influenza virus with other respiratory manifestations (principal); R05.9 Cough, unspecified; R07.9 Chest pain, unspecified; Z03.818 Encounter for observation for suspected exposure to other biological agents ruled out
CPT/HCPCS: 0241U; 71046; 72100; 80053; 83735; 84484; 85025; 93005; 99283

== ENCOUNTER → 2024-04-09 13:27 | Outpatient (BNV) | payer MEDICAID, SELFPAY | PROVIDERS: Emergency Provider Emergency Medicine; PCP Internal Medicine; Visit Provider Internal Medicine Cardiovascular Disease | DX: R07.9 Chest pain, unspecified (principal) | CPT/HCPCS: 93010 ==

== ENCOUNTER → 2024-04-09 13:38 | Outpatient (BNV) | payer MEDICAID, SELFPAY | PROVIDERS: Emergency Provider Emergency Medicine; PCP Internal Medicine; Visit Provider Radiology Diagnostic Radiology | DX: M54.50 Low back pain, unspecified (principal); R07.9 Chest pain, unspecified; R05.9 Cough, unspecified | CPT/HCPCS: 71046; 72100 ==